=== PATIENT | female | born 1985 | race Caucasian/White ===

== ENCOUNTER 2020-08-24 16:45 | Outpatient (CLI) | payer OTHER ==
[2020-08-24 17:38] VITALS: BP 120/81; PULSE 60; RESP 14; TEMP 98.8
--- NOTE | 2020-09-15 17:14 | P.MSEPDOC ---
Presenting Problems - Arrival Data Date of Arrival on Unit: 08/24/20 Time of Arrival on Unit: 16:34 Mode of Transport: Ambulatory - Complaint OB-Reason for Admission/Chief Complaint: Other Comment: pt sent from office by dr mehta for vag exam Medical History - Information : 1 Para: 0 Term: 0 : 0 Abortions: Spontaneous or Elective: 0 Number of Living Children: 0 - Gestational Age Gestational Age by LEEANN (wks/days): 40 Weeks and 0 Days Review of Systems - Review of Systems Constitutional: No problems Breast: No problems ENT: No problems Cardiovascular: No problems Respiratory: No problems Gastrointestinal: No problems Genitourinary: No problems Musculoskeletal: No problems Neurological: No problems Skin: No problems Vital Signs - Temperature Temperature: 98.8 F Temperature Source: Oral - Pulse Pulse Oximetery Pulse Rate: 60 Pulse Assessment Method: Pulse Oximetry - Respirations Respiratory Rate: 14 Oxygen Delivery Method: Room Air - Blood Pressure Right Arm Blood Pressure: 120/81 Blood Pressure Mean: 94 Blood Pressure Source: Automatic Cuff Medical Screen Scoring (Pre) - Cervical Exam Dilation: 1-3 cm = 1 Effacement: More than 50% = 2 Membranes: Intact - Uterine Contractions Frequency: N/A Duration: N/A Intensity: N/A - Maternal Vital Signs Maternal Temperature: N/A Maternal Blood Pressure: N/A Signs of Preeclampsia: N/A Maternal Respirations: N/A - Maternal Trauma Maternal Trauma: N/A - Assessment - Baby A Baseline FHR: 145 Heart Rate - NICHD Category: Category I (Normal) = 0 NST: Reactive Position: N/A Station: N/A - Total Score - Baby A Total Score - Baby A: 3 - Total Score - Baby B Total Score - Baby B: 3 - Total Score - Baby C Total Score - Baby C: 3 - Level of Risk - Baby A Level of Risk - Baby A: Low (0-5) - Level of Risk - Baby B Level of Risk - Baby B: Low (0-5) - Level of Risk - Baby C Level of Risk - Baby C: Low (0-5) Physician Notification (Pre) - Physician Notified Physician Notified Date: 08/24/20 Physician Notified Time: 16:51 New Order Received: Yes - Notification Comment Comment: dr mehta at bedside. plan of care discussed with pt. vag exam, follow up saturday in office Disposition - Disposition OB Disposition: Admit, Discharge to home Discharge Date: 08/24/20 Discharge Time: 17:18 I agree with the RN Medical Screening Exam: Yes Risk & Benefit of care provided described in d/c instruction: Yes Diagnosis: FALSE LABOR AT OR AFTER 37 COMPLETED WEEKS OF GESTATION
== END 2020-08-24 17:18 | disposition home or self-care (01) ==
LOC: FBPOP 16:45
PROVIDERS: ATTEND Obstetrics & Gynecology Obstetrics
DX: O47.1 False labor at or after 37 completed weeks of gestation (principal); Z3A.40 40 weeks gestation of pregnancy
CPT/HCPCS: 59025; 99213

== ENCOUNTER 2020-08-30 01:46 | Inpatient (IN) | payer OTHER ==
[2020-08-30] MEDS ORDERED: BUTORPHANOL 1 MG/ML 1 ML VIAL IV PRN (02:10)
[2020-08-30] MEDS ORDERED: TERBUTALINE 1 MG/ML VIAL SQ PRN (02:33)
[2020-08-30] MEDS ORDERED: METHYLERGONOVINE 0.2 MG/ML 1 ML AMP IM PRN (02:33)
[2020-08-30] MEDS ORDERED: CARBOPROST TROMETHAMINE 250 MCG/ML 1 ML AMP IM PRN (02:33)
[2020-08-30] MEDS ORDERED: OXYTOCIN 10 UNIT/ML 1 ML VIAL IM PRN (02:33)
[2020-08-30] MEDS ORDERED: LIDOCAINE 0.5% (PF) 5 MG/ML (50 ML SDV) SQ PRN (02:33)
[2020-08-30] MEDS: LACTATED RINGERS 1,000 ML IV SCH ×5 (02:44→19:15)
[2020-08-30] MEDS ORDERED: LACTATED RINGERS 1,000 ML IV SCH (02:45)
[2020-08-30 03:32] LABS: Basophils % (A) 0 %; Eosinophils % (A) 1 %; HCT 39.4 % (34.0-46.0); HGB 13.1 gm/dL (11.4-16.0); Lymphocytes # (A) 1.2 k/uL (1.0-4.8); Lymphocytes % (A) 12 %; MCH 32.4 pg (25.0-35.0); MCHC 33.4 g/dL (31.0-37.0); MCV 97.3 fL (80.0-100.0); Mean Platelet Volume 8.3; Monocytes # (A) 0.5 k/uL (0-1.0); Monocytes % (A) 5 %; Neutrophils # (A) 7.9 k/uL (1.3-7.7); Neutrophils % (A) 82 %; Platelet Count 173 k/uL (150-450); RBC 4.04 m/uL (3.80-5.40); RDW 12.5 % (11.5-15.5); WBC 9.7 k/uL (3.8-10.6)
[2020-08-30] MEDS: OXYTOCIN 30 UNITS/500 ML NS 30 UNIT in SALINE 1 500ML.BAG IV SCH (08:28)
--- NOTE | 2020-08-30 08:36 | P.HPOB ---
History of Present Illness H&P Date: 08/30/20 Chief Complaint: IUP @ 40 4/7 weeks, latent labor This is a 34 yo that presents to labor and delivery with complaints of contractions, she denies LOF or VB at that time. She notes good FM, and noted the contractions are uncomfortable. 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 She has been consistent with her care since [place] care is been essentially uncomplicated. On blood work she has a blood type of A+, rubella immune, B surface antigen negative HIV negative, RPR nonreactive, group beta strep was negative. On monitoring overnight patient had 2 late decelerations with recovery to moderate variability category 1 heart tones. Her heart tones are noted to be category 1 currently with irregular contractions. Review of Systems Constitutional: Denies chills, Denies fatigue, Denies fever Ears, nose, mouth and throat: Denies headache Cardiovascular: Denies leg edema Respiratory: Denies dyspnea Gastrointestinal: Denies constipation, Denies diarrhea, Denies nausea, Denies vomiting Past Medical History Past Medical History: Asthma History of Any Multi-Drug Resistant Organisms: None Reported Past Surgical History: Tonsillectomy Additional Past Surgical History / Comment(s): Biopsy breast Past Anesthesia/Blood Transfusion Reactions: No Reported Reaction Past Psychological History: No Psychological Hx Reported Smoking Status: Never smoker Past Drug Use History: None Reported - Past Family History Mother Family Medical History: No Reported History Medications and Allergies Home Medications Medication Instructions Recorded Confirmed Type Pnv,Calcium 72/Iron/Folic Acid 1 each PO DAILY 08/24/20 08/30/20 History [ Plus Tablet] Allergies Allergy/AdvReac Type Severity Reaction Status Date / Time No Known Allergies Allergy Verified 08/30/20 02:41 Exam Osteopathic Statement: *. No significant issues noted on an osteopathic str uctural exam other than those noted in the History and Physical/Consult. Vital Signs Temp Pulse Resp BP Pulse Ox 08/30/20 02:33 96.8 F L 64 16 122/77 08/30/20 02:10 96.8 F L 64 16 122/77 99 08/30/20 01:52 96.8 F L 64 16 122/77 Intake and Output 08/29/20 08/30/20 08/30/20 22:59 06:59 14:59 Other: # Voids 1 Weight 62.596 kg Targeted physical exam is performed on this date and outpatient therapist a well-nourished well-developed female in no acute distress, breathing is noted to be nonlabored, heart has regular rate and rhythm, abdomen is gravid. On cervical exam she is 1/80/-2 station amniotomy is performed and meconium-stained fluid is noted. Category 1 heart tones are noted, irregular contractions are appreciated on the monitor. Results Result Diagrams: 08/30/20 02:52 Abnormal Lab Results - Last 24 Hours (Table) 08/30/20 Range/Units 02:52 Neutrophils # 7.9 H (1.3-7.7) k/uL Assessment and Plan (1) Post-dates Current Visit: Yes Status: Acute Code(s): O48.0 - POST-TERM SNOMED Code(s): 69008939 Plan: This 34-year-old 1 para 0 at 40-5/7 weeks presented to labor and delivery last evening with complaints of regular painful contractions. Patient was noted to be 1/80, category 2 heart tones were noted therefore patient was admitted to labor and delivery. heart tones are currently category 1. Amniotomy was performed and meconium-stained fluid is noted, patient agreed to Pitocin augmentation of labor. Options for analgesia including epidural are discussed and she is agreeable. We will monitor closely given her heart tones over the evening and meconium-stained fluid. Multiple questions are answered regarding meconium-stained fluid and care of just after delivery.
[2020-08-30] MEDS ORDERED: ACETAMINOPHEN IV (For NPO) 1,000 MG in EMPTY BAG 1 BAG IVPB STA (15:48)
[2020-08-30] MEDS: OXYTOCIN 20 UNITS/1000 ML NS 1,000 ML IV SCH ×2 (16:20→17:32)
[2020-08-30] MEDS ORDERED: ZOLPIDEM 5 MG TAB PO PRN (16:53)
[2020-08-30] MEDS ORDERED: BENZOCAINE/MENTHOL SPRAY 1 GM/SPRAY AEROSOL TOPICAL PRN (16:53)
[2020-08-30] MEDS ORDERED: HYDROCORTISONE 2.5% RECTAL CREAM 30 GM TUBE RECTAL PRN (16:53)
[2020-08-30] MEDS ORDERED: diphenhydrAMINE 25 MG CAP PO PRN (16:53)
[2020-08-30] MEDS ORDERED: ACETAMINOPHEN TAB 325 MG TAB PO PRN (16:53)
[2020-08-30] MEDS ORDERED: diphenhydrAMINE 50 MG/ML 1 ML VIAL IVP PRN ×2 (16:53)
[2020-08-30] MEDS ORDERED: LANOLIN CREAM 5 GM TUBE TOPICAL PRN (16:53)
[2020-08-30] MEDS ORDERED: HYDROcodone/APAP 5-325MG 1 EACH TAB PO PRN (16:53)
[2020-08-30] MEDS ORDERED: diphenhydrAMINE 50 MG CAP PO PRN (16:53)
[2020-08-30] MEDS ORDERED: SIMETHICONE 80 MG CHEWABLE PO PRN (16:53)
--- NOTE | 2020-08-30 16:57 | P.PROBDLV ---
Vaginal Delivery Note - . Vaginal Delivery Note: This is a 34-year-old 1 para 0 that presented to labor and delivery at 40-5/7 weeks with complaints of regular painful contractions. Patient was noted to be 1/80/-3 station.. Patient was noted to have a few variable/late decelerations throughout her stay and was admitted to labor and delivery. Patient was isaac irregularly at that time. Patient was admitted amniotomy is performed and meconium-stained fluid was noted. Patient was begun and Pitocin augmentation of labor. Patient became uncomfortable and requested epidural for analgesia. Epidural was placed by the anesthesia without difficulty. Patient progressed quickly to complete and began pushing. Patient had a normal spontaneous vaginal delivery of a viable male at 1617, weight of 7 pounds 3.9 ounces with Apgars of 9 and 9 at one and 5 minutes respectively. After two-minute delayed the umbilical cords doubly clamped and cut and the was handed off to the maternal abdomen. A spontaneous cry was noted at . The placenta was delivered spontaneously intact with three- vessel cord being noted. On section the patient's vaginal vault a left labial/vaginal laceration was noted this was repaired in the usual fashion with 3-0 Rapide. In addition a clitoral laceration was noted Austin catheter was used to delineate the urethra and this was repaired with a [id number] suture. Hemostasis was appreciated after inspection. The uterus is noted to be firm and below the umbilicus. Estimated blood loss 300 mL. All counts were noted to be correct 2 at the end of the delivery. Patient and infant tolerated delivery well and are resting comfortably.
[2020-08-30] MEDS: SENNOSIDES-DOCUSATE SODIUM 1 EACH TAB PO SCH (20:04)
[2020-08-30] MEDS: IBUPROFEN 600 MG TAB PO PRN (21:15)
--- NOTE | 2020-08-31 08:30 | P.PNOBGVD ---
Subjective - Subjective Principal diagnosis: PPD 1 Interval history: Patient is doing well she states she slept well overnight. She is breast- feeding. She states her pain is well-controlled with oral ibuprofen. She is tolerating a regular diet without nausea or vomiting. She denies concerns this morning. Patient reports: Reports appetite normal, Reports voiding normally, Reports pain well controlled, Reports ambulating normally : doing well, nursing well Objective - Latest Vital Signs Latest vital signs: Vital Signs Temp Pulse Resp BP Pulse Ox 08/31/20 04:00 97.7 F 72 18 97/55 97 08/31/20 00:00 97.6 F 72 18 94/58 97 08/30/20 20:00 98.3 F 79 18 100/53 97 08/30/20 18:38 98.9 F 89 16 110/57 08/30/20 18:08 83 16 105/57 08/30/20 17:38 83 16 98/58 08/30/20 17:23 86 16 98/56 08/30/20 17:08 77 16 98/60 08/30/20 16:53 98.9 F 91 16 91/58 08/30/20 16:38 69 16 103/58 Intake and Output 08/30/20 08/31/20 08/31/20 22:59 06:59 14:59 Intake Total 1000 Output Total 100 Balance 900 Intake: Intake, IV Titration 1000 Amount Oxytocin 20 Units/1000 ml 1000 Ns 1,000 ml @ Per Protocol IV .Q0M [facility] Rx#: [id number] Output: Urine 100 Other: # Voids 1 1 - Exam Extremities: Present: normal, edema Abdomen: Present: normal appearance Uterus: Present: normal, firm Assessment and Plan (1) Post-dates Current Visit: Yes Status: Acute Code(s): O48.0 - POST-TERM SNOMED Code(s): 27451834 (2) Status post vaginal delivery Current Visit: Yes Status: Acute Code(s): SPX9988 - SNOMED Code(s): 849705188 Plan: This 34-year-old 1 now para 1 status post normal spontaneous vaginal delivery is doing well on day #1. She is involuting and voiding without difficulty. She is tolerating a regular diet without nausea or vomiting. She denies concerns this morning. She would like to stay until day #2.
[2020-08-31] MEDS: SENNOSIDES-DOCUSATE SODIUM 1 EACH TAB PO SCH ×2 (08:39→19:40)
[2020-08-31 09:25] LABS: Basophils % (A) 0 %; Eosinophils % (A) 0 %; HCT 34.5 % (34.0-46.0); HGB 10.9 gm/dL (11.4-16.0); Lymphocytes # (A) 1.1 k/uL (1.0-4.8); Lymphocytes % (A) 8 %; MCH 31.7 pg (25.0-35.0); MCHC 31.7 g/dL (31.0-37.0); MCV 99.8 fL (80.0-100.0); Mean Platelet Volume 8.4; Monocytes # (A) 0.5 k/uL (0-1.0); Monocytes % (A) 4 %; Neutrophils # (A) 12.3 k/uL (1.3-7.7); Neutrophils % (A) 88 %; Platelet Count 176 k/uL (150-450); RBC 3.46 m/uL (3.80-5.40); RDW 12.3 % (11.5-15.5)
[2020-08-31] MEDS: IBUPROFEN 600 MG TAB PO PRN ×2 (10:14→15:58)
[2020-08-31] MEDS: PRENATAL VIT-IRON-FOLIC ACID 1 EACH CAP PO SCH (16:04)
[2020-08-31] MEDS: OXYTOCIN 30 UNITS/500 ML NS 30 UNIT in SALINE 1 500ML.BAG IV SCH (23:59)
[2020-08-31] MEDS: LACTATED RINGERS 1,000 ML IV SCH (23:59)
[2020-09-01 08:46] VITALS: BP 102/63; PULSE 75; RESP 15; TEMP 98
--- NOTE | 2020-09-01 09:06 | P.DS ---
Providers Date of admission: 08/30/20 02:13 Expected date of discharge: 09/01/20 Attending physician: Blanka Tilley Primary care physician: Stated None - Discharge Diagnosis(es) (1) Post-dates Current Visit: Yes Status: Acute (2) Status post vaginal delivery Current Visit: Yes Status: Acute Hospital Course: This is a 34-year-old 1 para 0 that presented to labor and delivery at 40-5/7 weeks with complaints of regular painful contractions. Patient was noted to be in latent labor. Subtle decelerations in the heart rate was noted therefore patient was admitted to labor and delivery amniotomy was performed and meconium-stained fluid was noted. Patient was begun on Pitocin for augmentation of labor. Patient became uncomfortable and requested epidural placement. Epidural was placed without difficulty by the anesthesia department. Patient progressed to complete began pushing and had a normal spontaneous vaginal delivery of a viable male infant at 1617, weight of 7 pounds 3.9 ounces and Apgars of 9 and 9 at one and 5 minutes respectively. Patient did sustain a left labial laceration was repaired in the usual fashion with 3-0 Rapide. Patient has done well . Patient is ambulating and voiding without difficulty. She is tolerating a regular diet without nausea or vomiting. Her lochia is moderate. She is breast-feeding without difficulty. She is doing well and will be discharged home today. Patient Condition at Discharge: Good Plan - Discharge Summary New Discharge Prescriptions: No Action Pnv,Calcium 72/Iron/Folic Acid [ Plus Tablet] 1 each PO DAILY Discharge Medication List Pnv,Calcium 72/Iron/Folic Acid [ Plus Tablet] 1 each PO DAILY 08/24/20 [History] Follow up Appointment(s)/Referral(s): Blanka Tilley DO [Doctor of Osteopathic Medicine] - 4 Weeks Patient Instructions/Handouts: Vaginal Delivery (DC), Vaginal Delivery (GEN) Activity/Diet/Wound Care/Special Instructions: Patient can expect. Like bleeding for 4-6 weeks postdelivery. Patient is to avoid tub baths or intercourse until 6 weeks . If patient should have any questions or concerns prior to her 4 week visit she is urged to call the office. [id number] ibuprofen 600 mg as needed for pain. She is encouraged to take senna/S2 at bedtime for bowel movements. Discharge Disposition: HOME SELF-CARE
[2020-09-01] MEDS: PRENATAL VIT-IRON-FOLIC ACID 1 EACH CAP PO SCH (11:36)
[2020-09-01] MEDS: IBUPROFEN 600 MG TAB PO PRN ×2 (12:08)
[2020-09-01] MEDS: SENNOSIDES-DOCUSATE SODIUM 1 EACH TAB PO SCH (14:25)
== END 2020-09-01 13:50 | disposition home or self-care (01) | DRG 807 ==
LOC: FBPOP 01:46 → 4FBP 02:13
PROVIDERS: ADMIT Obstetrics & Gynecology; ATTEND Obstetrics & Gynecology Obstetrics
PROC: 10E0XZZ Delivery of Products of Conception, External Approach (ICD-10-PCS; principal; 2020-08-30)
PROC: 10907ZC Drainage of Amniotic Fluid, Therapeutic from Products of Conception, Via Natural or Artificial Opening (ICD-10-PCS; 2020-08-30)
PROC: 0HQ9XZZ Repair Perineum Skin, External Approach (ICD-10-PCS; 2020-08-30)
PROC: 3E0R3BZ Introduction of Anesthetic Agent into Spinal Canal, Percutaneous Approach (ICD-10-PCS; 2020-08-30)
DX: O48.0 Post-term pregnancy (principal); Z37.0 Single live birth; O76 Abnormality in fetal heart rate and rhythm complicating labor and delivery; J45.909 Unspecified asthma, uncomplicated; O99.52 Diseases of the respiratory system complicating childbirth; O77.0 Labor and delivery complicated by meconium in amniotic fluid; Z3A.40 40 weeks gestation of pregnancy; O70.0 First degree perineal laceration during delivery; Z98.890 Other specified postprocedural states; Z79.899 Other long term (current) drug therapy
CPT/HCPCS: 59025; 85025; 86850; 86900; 86901; 88307; 99213